=== PATIENT | female | born 1955 | race Caucasian/White ===

== ENCOUNTER 2017-07-11 01:50 | Emergency (ER) | payer OTHER ==
[~2017-07-11] VITALS: Ht 160 cm; Wt 102.1 kg
[~2017-07-11 01:50] MED LIST: BISOPROLOL FUMAR5 M1; FLEXERIL PO; GLUCOPHAGE500 MG PO; GLUCOTROL10 MG PO; HYDROCODON-ACE1 EAC7 PO; LANTUS SQ; LISINOPRIL PO; LOVASTAT40 PO; METAMUCIL0.52 GM; ZOFRAN4 MG PO; ZOLOFT 50 MG TA50 M1 PO
[2017-07-11] MEDS ORDERED: FLEXERIL PO (04:11)
[2017-07-11] MEDS ORDERED: NORCO 5-325 TA1 EACH PO (04:11)
[2017-07-11 04:58] VITALS: BP 170/91
[2017-07-11 05:08] LABS: ABSOLUTE BASOPHILS 0.1 thou/uL (0.0-0.2); ABSOLUTE EOSINOPHILS 0.2 thou/uL (0.0-0.7); ABSOLUTE LYMPHOCYTES 1.7 thou/uL (0.8-5.3); ABSOLUTE MONOCYTES 0.6 thou/uL (0.0-1.2); ABSOLUTE NEUTROPHILS 9.6 thou/uL (1.6-8.1); BASOPHILS 0.6 %; EOSINOPHILS 1.3 %; HEMATOCRIT 33.5 % (37.0-47.0); HEMOGLOBIN 11.7 gm/dL (12.0-15.0); LYMPHOCYTES 14.3 %; MCH 31.6 pg (26.0-34.0); MCHC 34.8 g/dL (28.0-37.0); MCV 90.7 fL (80.0-100.0); MONOCYTES 4.6 %; NUCLEATED RBCS 0 /100WBC; PLATELET COUNT* 277 thou/uL (150-400); POLYS 79.2 %; RDW-CV 12.9 % (10.5-14.5); WBC 12.1 thou/uL (4.0-11.0)
[2017-07-11 05:15] LABS: CALCIUM 9.1 mg/dL (8.5-10.1); CREATININE 1.1 mg/dL (0.6-1.3); POTASSIUM 4.3 mmol/L (3.5-5.1)
[2017-07-11 05:16] LABS: APTT 26.9 Seconds (25.0-31.3); PROTIME 9.4 Seconds (9.20-11.50)
[2017-07-11 05:20] LABS: ALBUMIN 3.2 g/dL (3.4-5.0); TOTAL BILIRUBIN 0.2 mg/dL (<0.1-1.0); TOTAL PROTEIN 6.8 g/dL (6.4-8.2)
== END 2017-07-11 05:14 | disposition short-term general hospital (02) ==
LOC: M.ERS 01:50
PROVIDERS: Family Medicine
DX: S02.2XXA Fracture of nasal bones, initial encounter for closed fracture (principal); S22.089A Unspecified fracture of T11-T12 vertebra, initial encounter for closed fracture; E11.9 Type 2 diabetes mellitus without complications; I10 Essential (primary) hypertension; W18.09XA Striking against other object with subsequent fall, initial encounter; Y93.89 Activity, other specified; Y92.89 Other specified places as the place of occurrence of the external cause; Y99.8 Other external cause status

== ENCOUNTER → 2017-10-25 | Outpatient (CLI) | payer OTHER ==
[~2017-10-25] MED LIST changes: +NORCO 5-325 TA1 EACH PO
[2017-10-25 11:20] LABS: CALCIUM 9.2 mg/dL (8.5-10.1); CREATININE 1.1 mg/dL (0.6-1.3); POTASSIUM 4.3 mmol/L (3.5-5.1)
[2017-10-26 02:07] LABS: GLYCOHEMOGLOBIN (HGB A1C) 6.1 % (4.8-5.6)
== END ==
LOC: M.RAD 10:38
PROVIDERS: Family Medicine
DX: M48.54XA Collapsed vertebra, not elsewhere classified, thoracic region, initial encounter for fracture (principal); E11.9 Type 2 diabetes mellitus without complications

== ENCOUNTER → 2018-04-27 | Outpatient (CLI) | payer OTHER ==
[2018-04-27 11:35] LABS: ALBUMIN 3.6 g/dL (3.4-5.0); CALCIUM 9.2 mg/dL (8.5-10.1); CREATININE 1.1 mg/dL (0.6-1.3); POTASSIUM 4.4 mmol/L (3.5-5.1); TOTAL BILIRUBIN 0.3 mg/dL (<0.1-1.0); TOTAL PROTEIN 7.2 g/dL (6.4-8.2)
== END ==
LOC: M.LAB 10:44
PROVIDERS: Family Medicine
DX: E11.9 Type 2 diabetes mellitus without complications (principal); I10 Essential (primary) hypertension; Z79.4 Long term (current) use of insulin

== ENCOUNTER → 2018-08-23 | Outpatient (CLI) | payer OTHER ==
[2018-08-23 10:13] LABS: ABSOLUTE BASOPHILS 0.1 thou/uL (0.0-0.2); ABSOLUTE EOSINOPHILS 0.2 thou/uL (0.0-0.7); ABSOLUTE LYMPHOCYTES 1.7 thou/uL (0.8-5.3); ABSOLUTE MONOCYTES 0.5 thou/uL (0.0-1.2); BASOPHILS 1.2 %; EOSINOPHILS 2.3 %; HEMATOCRIT 35.6 % (37.0-47.0); HEMOGLOBIN 11.6 gm/dL (12.0-15.0); LYMPHOCYTES 18.3 %; MCH 30.2 pg (26.0-34.0); MCHC 32.6 g/dL (28.0-37.0); MCV 92.6 fL (80.0-100.0); MONOCYTES 5.1 %; MPV 7.9 fl. (7.2-11.1); NUCLEATED RBCS 0 /100WBC; PLATELET COUNT* 315 thou/uL (150-400); POLYS 73.1 %; RBC 3.84 mil/uL (4.20-5.00); RDW-CV 13.3 % (10.5-14.5); WBC 9.5 thou/uL (4.0-11.0)
[2018-08-23 10:38] LABS: ALBUMIN 3.4 g/dL (3.4-5.0); ALKALINE PHOSPHATASE 64 U/L (46-116); ANION GAP 8 mmol/L (7-16); BUN 29 mg/dL (7-18); CALCIUM 9.1 mg/dL (8.5-10.1); CHLORIDE 104 mmol/L (98-107); CO2 25 mmol/L (21-32); CREATININE 1.3 mg/dL (0.6-1.3); GLUCOSE 129 mg/dL (70-99); POTASSIUM 4.7 mmol/L (3.5-5.1); SGOT 15 U/L (15-37); SGPT 24 U/L (30-65); SODIUM 137 mmol/L (136-145); TOTAL BILIRUBIN 0.3 mg/dL (<0.1-1.0); TOTAL PROTEIN 6.9 g/dL (6.4-8.2)
[2018-08-23 10:55] LABS: CHOLESTEROL 160 mg/dL (<200); HDL CHOLESTEROL 87 mg/dL (>40); LDL CHOLESTEROL 59 mg/dL (<100); TC:HDL 1.8 Ratio (Not establshd); TRIGLYCERIDE 72 mg/dL (<150); VLDL 14 mg/dL (<40)
[2018-08-23 10:57] LABS: SERUM ASSESSMENT Clear
[2018-08-23 17:10] LABS: LDL (DIRECT) CHOL 67 mg/dL (0-99)
[2018-08-23 18:06] LABS: T7 1.3 (1.2-4.9)
[2018-08-23 23:07] LABS: GLYCOHEMOGLOBIN (HGB A1C) 6.5 % (4.8-5.6)
== END ==
LOC: M.LAB 09:47
PROVIDERS: Family Medicine
DX: Z12.31 Encounter for screening mammogram for malignant neoplasm of breast (principal); E11.9 Type 2 diabetes mellitus without complications; E78.5 Hyperlipidemia, unspecified; I10 Essential (primary) hypertension

== ENCOUNTER → 2018-09-25 | Outpatient (CLI) | payer OTHER | LOC: M.MRI 09-14 11:48 | DX: M75.42 Impingement syndrome of left shoulder (principal); M75.41 Impingement syndrome of right shoulder; M75.102 Unspecified rotator cuff tear or rupture of left shoulder, not specified as traumatic; M75.101 Unspecified rotator cuff tear or rupture of right shoulder, not specified as traumatic; M25.512 Pain in left shoulder; M25.511 Pain in right shoulder; M19.011 Primary osteoarthritis, right shoulder; M19.012 Primary osteoarthritis, left shoulder ==

== ENCOUNTER → 2018-11-07 | Outpatient (CLI) | payer OTHER ==
[~2018-11-07] MED LIST changes: +CATAPRESS3 TOP; +DULOXETINE HCL60 MG PO; +ESZOPICLONE3 MG PO; -LISINOPRIL PO; +LISINOPRIL40 MG PO; +MOBIC15 MG PO; +TOUJEO SOL300 UNIT/1 SUBQ; +TRULICITY0.75 MG/0. SUBQ
== END ==
LOC: M.ULTRA 09:00
DX: I15.0 Renovascular hypertension (principal)

== ENCOUNTER → 2018-11-09 | Outpatient (CLI) | payer OTHER ==
[~2018-11-09] VITALS: Ht 160 cm; Wt 101.6 kg
[2018-11-09 09:02] LABS: HEMATOCRIT 35.4 % (37.0-47.0); MCH 31.4 pg (26.0-34.0); MCHC 33.8 g/dL (28.0-37.0); MPV 8.2 fl. (7.2-11.1); RBC 3.81 mil/uL (4.20-5.00); WBC 10.7 thou/uL (4.0-11.0)
[2018-11-09 09:06] LABS: URINE BILIRUBIN NEGATIVE (Negative); URINE BLOOD NEGATIVE (Negative); URINE CLARITY CLEAR; URINE COLOR YELLOW; URINE GLUCOSE-RANDOM NEGATIVE (Negative); URINE KETONES NEGATIVE (Negative); URINE LEUKOCYTES-REFLEX NEGATIVE (Negative); URINE NITRITE-REFLEX NEGATIVE (Negative); URINE PROTEIN NEGATIVE (Negative); URINE SPECIFIC GRAVITY 1.015 (1.005-1.030); URINE UROBILINOGEN 0.2 E.U./dl (0.2-1.0)
[2018-11-09 09:10] LABS: INR 0.9; PROTIME 9.5 Seconds (9.20-11.50)
[2018-11-09 09:14] LABS: ALBUMIN 3.6 g/dL (3.4-5.0); CALCIUM 9.5 mg/dL (8.5-10.1); CREATININE 1.2 mg/dL (0.6-1.3); POTASSIUM 4.5 mmol/L (3.5-5.1); TOTAL BILIRUBIN 0.3 mg/dL (<0.1-1.0); TOTAL PROTEIN 7.2 g/dL (6.4-8.2)
--- NOTE | 2018-11-09 17:40 | EKG ---
[place] [address] ELECTROCARDIOGRAM REPORT Name: FUNMILAYO LARSON Room: PRE IN [facility].#: [id number] Admission: Attend Phys: Trisha García Discharge: Date of : 57 Report #: [id number] THIS REPORT FOR: //name// 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
== END ==
LOC: M.PRE → M.LAB 08:00 → M.PRE 11-21 06:44 → EDSTATUS 11-21 15:14
PROVIDERS: Orthopaedic Surgery
DX: Z01.818 Encounter for other preprocedural examination (principal); M19.011 Primary osteoarthritis, right shoulder; I51.7 Cardiomegaly

== ENCOUNTER → 2018-11-15 | Outpatient (CLI) | payer OTHER | LOC: M.CT 07:22 | DX: I70.1 Atherosclerosis of renal artery (principal); I72.8 Aneurysm of other specified arteries ==

== ENCOUNTER → 2019-01-12 | Outpatient (CLI) | payer OTHER ==
[2019-01-12 17:06] LABS: ABSOLUTE BASOPHILS 0.1 thou/uL (0.0-0.2); ABSOLUTE EOSINOPHILS 0.2 thou/uL (0.0-0.7); ABSOLUTE LYMPHOCYTES 2.5 thou/uL (0.8-5.3); ABSOLUTE MONOCYTES 0.6 thou/uL (0.0-1.2); ABSOLUTE NEUTROPHILS 8.1 thou/uL (1.6-8.1); BASOPHILS 0.5 %; EOSINOPHILS 1.6 %; HEMATOCRIT 36.7 % (37.0-47.0); HEMOGLOBIN 12.1 gm/dL (12.0-15.0); LYMPHOCYTES 21.6 %; MCH 30.7 pg (26.0-34.0); MCHC 32.9 g/dL (28.0-37.0); MCV 93.3 fL (80.0-100.0); MONOCYTES 5.1 %; MPV 8.3 fl. (7.2-11.1); NUCLEATED RBCS 0 /100WBC; PLATELET COUNT* 398 thou/uL (150-400); POLYS 71.2 %; RBC 3.93 mil/uL (4.20-5.00); RDW-CV 12.9 % (10.5-14.5); WBC 11.4 thou/uL (4.0-11.0)
[2019-01-12 17:18] LABS: APTT 24.7 Seconds (25.0-31.3); PROTIME 9.8 Seconds (9.20-11.50)
[2019-01-12 17:21] LABS: ALBUMIN 3.6 g/dL (3.4-5.0); CALCIUM 9.8 mg/dL (8.5-10.1); CREATININE 1.2 mg/dL (0.6-1.3); POTASSIUM 4.8 mmol/L (3.5-5.1); TOTAL BILIRUBIN 0.3 mg/dL (<0.1-1.0); TOTAL PROTEIN 7.5 g/dL (6.4-8.2)
== END ==
LOC: M.LAB 16:34
PROVIDERS: Internal Medicine Hematology & Oncology
DX: R23.8 Other skin changes (principal)

== ENCOUNTER 2019-02-13 08:46 | Inpatient (IN) | payer OTHER ==
[2019-02-01 09:23] LABS: HEMATOCRIT 34.4 % (37.0-47.0); HEMOGLOBIN 11.4 gm/dL (12.0-15.0); MCH 31.5 pg (26.0-34.0); MCHC 33.2 g/dL (28.0-37.0); MPV 7.8 fl. (7.2-11.1); RBC 3.62 mil/uL (4.20-5.00); RDW-CV 12.7 % (10.5-14.5); WBC 9.2 thou/uL (4.0-11.0)
[2019-02-01 09:32] LABS: INR 0.9; PROTIME 9.6 Seconds (9.20-11.50)
[2019-02-01 09:37] LABS: ALBUMIN 3.4 g/dL (3.4-5.0); CALCIUM 9.2 mg/dL (8.5-10.1); CREATININE 1.1 mg/dL (0.6-1.3); POTASSIUM 4.4 mmol/L (3.5-5.1); TOTAL BILIRUBIN 0.3 mg/dL (<0.1-1.0); TOTAL PROTEIN 7.1 g/dL (6.4-8.2)
[2019-02-01 10:00] LABS: URINE BILIRUBIN NEGATIVE (Negative); URINE BLOOD NEGATIVE (Negative); URINE CLARITY CLEAR; URINE COLOR YELLOW; URINE GLUCOSE-RANDOM NEGATIVE (Negative); URINE KETONES NEGATIVE (Negative); URINE LEUKOCYTES-REFLEX NEGATIVE (Negative); URINE NITRITE-REFLEX NEGATIVE (Negative); URINE PROTEIN NEGATIVE (Negative); URINE SPECIFIC GRAVITY 1.015 (1.005-1.030); URINE UROBILINOGEN 0.2 E.U./dl (0.2-1.0)
--- NOTE | 2019-02-01 10:56 | EKG ---
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
[~2019-02-13] VITALS: Ht 160 cm; Wt 102.1 kg
[~2019-02-13 08:46] MED LIST changes: +AMLODIPINE BESY10 MG PO; -BISOPROLOL FUMAR5 M1; +BISOPROLOL FUMAR5 M1 PO; +COMPLEX B-1001 EACH PO; +TRAMADOL 50 MG50 MG PO
[2019-02-13 12:57] VITALS: BP 144/82
[2019-02-13 16:25] VITALS: BP 104/63
[2019-02-13 16:31] VITALS: BP 104/63
--- NOTE | 2019-02-13 16:36 | NUR ---
PT ADMITTED TO UNIT WITH RT REVERSE TOAL SHOULDER REPLACEMENT. PT ALERT AND ORIENTED AND DROWSY. PT IS ON 3 LITERS 02 WITH CAPNO. 92% SATS. PULSES 2+ IN ALL EXTREMITIES. LUNGS CLEAR. HEART RATE REGULAR. HX HTN. PT ACCUE CHECK WITH HX DM TYPE 2. PT GIVEN HUMALOG 6 UNITS PRIOR TO TRANSFER TO UNIT. PT NOT EATING AT THIS TIME, HOLDING METFORMIN UNTIL MORE ALERT. PT HAS ICE PACK TO RT SHOULDER. IMMOBILIZER TO RT SHOULDER. PT DENIES ANY PAIN AT THIS TIME. IV LT WRIST WITH 1/2 NS AT 75. FAMILY AT BEDSIDE. FALL RISK PRECAUTIONS IN PLACE. HOURLY ROUNDING COMPLETED. WILL CONTINUE TO MONITOR.
--- NOTE | 2019-02-13 17:20 | NUR ---
PT REMAINED ALERT AND ORIENTED. PT RESTING IN ROOM. PT DROWSY AT THIS TIME. PT DENIES ANY PAIN AT THIS MOMENT. FALL RISK PRECAUTIONS IN PLACE. HOURLY ROUNDING COMPLETED. WILL CONTINUE TO MONITOR.
[2019-02-13 19:45] VITALS: BP 111/58
[2019-02-14] VITALS (7 sets, daily range): BP systolic 115–143; BP diastolic 61–73
--- NOTE | 2019-02-14 04:59 | NUR ---
PATIENT ORIENTED X 4 AT FIRST ROUNDS BUT STILL DROWSY FROM SURGERY. STEADILY MORE ALERT THROUGHOUT THE SHIFT. RESTING QUIETLY ON HOURLY ROUNDS. STATES DOES NOT SLEEP WELL BUT DID NOT WANT TO TAKE OFFERED AMBIEN. DRESSING AND POLAR CARE CLEAN AND DRY RIGHT SHOULDER. RIGHT UE REMAINS IN IMMOBILIZER. 2+ RADIAL PULSES. ABLE TO SQUEEZE POSITIONING BALL. BLOCK IN EFFECT MOST OF SHIFT AND HAD NO PAIN UNTIL 0330. PROVIDED FLEXERIL AND HYDROCODONE AT THAT TIME TO GOOD EFFECT. TRANSFERING WITH MIN ASSIST SUPINE TO SIT, CGA SIT TO STAND AND CGA AMBULATION TO THE BATHROOM. ADEQUATE VOIDS. VITAL SIGNS STABLE WITH O2 ON AT 2L/MIN AND CONTINUOUS CAPNOGRAPHY. NO NAUSEA. IVF'S AND ANTIBIOTICS PER ORDER. BED ALARM ON FOR SAFETY. CONTINUE TO MONITOR.
[2019-02-14] MEDS ORDERED: PERCOCET PO (10:48)
[2019-02-14] MEDS ORDERED: XARELTO10 MG PO (10:49)
--- NOTE | 2019-02-14 11:30 | NUR ---
NO PRESCRIPTION ON CHART FOR XARELTO. PT.THINKS SHE IS TO DO OUTPT.THERAPY. CALL PLACED TO OFFICE AND SPOKE WITH HIS NURSE,GIRISH. SHE SAID HE IS DELAY IN SURGERY. SHOULD BE HER ABOUT 12. SHE WILL CALL CM BACK. PT.LIVES WITH . DAUGHTER,WHO IS AN RN ALSO LIVES WITH THEM. THEY CAN BOTH HELP PT. NEEDED. SHE DOES NOT USE ANY DME. IS NORMALLY INDEPENDENT. 1330-CM CALLED 'S OFFICE BACK. IS STILL IN SURGERY. 1530-CALLED OFFICE. GIRISH CLARIFIED QUESIONS FOR CM. ORDERS RECEIVED AND WRITTEN. PT.CHOSE [facility] FOR THEY CONTRACT WITH HER INSURANCE. FAXED REFERRAL ND DISCHARGE ORDERS TO [facility].
[2019-02-14] MEDS ORDERED: ASPIRIN325 PO (14:59)
--- NOTE | 2019-02-14 16:08 | NUR ---
PT GIVEN DISCHARGE INFORMATION, CARE NOTES, AND PRESCRIPTIONS. IV REMOVED. PT LEFT VIA WHEELCHAIR WITH NURSING STAFF TO HOME WITH FAMILY. HOME HEALTH ORDERED. FALL RISK PRECAUTIONS IN PLACE. HOURLY ROUNDING COMPLETED.
--- NOTE | 2019-02-20 08:39 | OP ---
[facility] [address] [place] [address] OPERATIVE REPORT Name: MARSHAFUNMILAYOIDRIS DUTTA Room: [address] IN M.R.#: [id number] Admission: 02/13/19 Attend Phys: Trisha García Discharge: 02/14/19 Date of : 57 Report #: [id number] THIS REPORT FOR: //name// CC: Cintia Garcia DATE OF SERVICE: 02/13/2019 PREOPERATIVE DIAGNOSIS: Right shoulder osteoarthritis. POSTOPERATIVE DIAGNOSES: 1. Right shoulder osteoarthritis. 2. Biceps tendon tear. PROCEDURES: 1. Right shoulder reverse total shoulder arthroplasty. 2. Biceps tenodesis. SURGEON: Сергей Dee II, DO. MANAGER FRONT OFFICE: PEYTON Wyatt. ANESTHESIA: General endotracheal. ESTIMATED BLOOD LOSS: 50 mL. ANTIBIOTICS: Ancef preoperatively. DRAINS: None. COMPLICATIONS: None. CONDITION: Stable to recovery room. IMPLANTS: Listed in the operative record and progress note. BRIEF HISTORY: The patient was seen in the preoperative area. Preoperative H and P was performed. Site was marked. Questions were answered. Risks and benefits were discussed with the patient in detail about surgery. The patient wished to proceed, assuming all risks. DESCRIPTION OF PROCEDURE: The patient was taken to the operative suite and placed supine upon the operative table and placed in modified beach chair position. All bony prominences were well padded. The right shoulder was sterilely prepped and draped. Surgery began by deltopectoral incision, this was [facility] [address] [place] [address] OPERATIVE REPORT Name: FUNMILAYO LARSON Room: [address] M.R.#: [id number] Admission: 02/13/19 Attend Phys: Trisha García Discharge: 02/14/19 Date of : 57 Report #: [id number] carried down to the subcutaneous tissues. The deltoid was retracted laterally and the subscap muscle was reflected off the anterior aspect of the humerus. The rotator cuff did have severe tearing and portions of these were resected. The humerus was then dislocated and a starter guide was then placed into the proximal aspect of the humerus down into the canal, this was broached in sequential fashion up to appropriate size, which was size 10, this was left in place. The alignment guide was then aligned for the head cut and the head was cut in appropriate fashion. After this was removed, it was broached in sequential fashion up to appropriate size 10, this was then left in place and the metal hubcap was then placed on top of the humerus to protect it. This was then retracted to expose the glenoid. Excess labrum was removed around the glenoid as well as excess osteophytes from the inferior surface and superior surface. The guide pin was then placed through the lower center of the glenoid to appropriate depth. It was then reamed in appropriate fashion down to punctate bleeding, this was then removed and the glenoid baseplate was then applied and secured to the inferior superior as well as posterior screw in appropriate fashion. The central screw was then sectioned to further position. The glenosphere was then selected with the eccentric version size 36 and this was then malleted in position and secured to the glenoid baseplate. Attention was then turned back to the humerus, it was trialed utilizing multiple selections and finally settled on an implant that was significantly stable with full range of motion of the shoulder, finals were then assembled on the back table in a monoblock and malleted down into position and once again reduced in appropriate fashion into the shoulder. Shoulder once again showed full range of motion without evidence of dislocation and excellent stability of all prosthesis. Final irrigation was then performed. The deltoid was gently reapproximated to the underlying tissues utilizing a 1 Vicryl in running fashion. Skin was closed with 2-0 Vicryl and running Monocryl stitch. Dermabond and sterile dressing as well as an UltraSling were applied. The patient transported to recovery room in stable condition. At this time, the biceps tendon was attached to the pectoralis with the biceps tenodesis being performed due to significant tearing. The remaining portion of the intra-articular area was clipped and removed and I then put the closure part, the deltoid was reapproximated, skin was closed with 2-0 Vicryl and running Monocryl and Dermabond and sterile dressing. <ELECTRONICALLY SIGNED> By: Сергей Dee II, DO 02/20/19 0839 0831 0917Сергей Dee II, DO /nt
== END 2019-02-14 16:31 | disposition home health service (06) | DRG 483 ==
LOC: M.TBA 08:46 → M.PRE 08:58 → M.ORTHSURG 15:03
PROVIDERS: Orthopaedic Surgery; ADMIT Internal Medicine
PROC: 0RRJ00Z Replacement of Right Shoulder Joint with Reverse Ball and Socket Synthetic Substitute, Open Approach (ICD-10-PCS; principal; 2019-02-13)
DX: M19.011 Primary osteoarthritis, right shoulder (principal); J98.11 Atelectasis; S46.211A Strain of muscle, fascia and tendon of other parts of biceps, right arm, initial encounter; E11.9 Type 2 diabetes mellitus without complications; I10 Essential (primary) hypertension; E78.5 Hyperlipidemia, unspecified; E66.9 Obesity, unspecified; Z68.39 Body mass index [BMI] 39.0-39.9, adult; Z90.49 Acquired absence of other specified parts of digestive tract; Z79.899 Other long term (current) drug therapy; X58.XXXA Exposure to other specified factors, initial encounter; Y93.89 Activity, other specified; Y92.89 Other specified places as the place of occurrence of the external cause; Y99.8 Other external cause status

== ENCOUNTER → 2019-02-28 | Outpatient (CLI) | payer OTHER ==
[~2019-02-28] MED LIST changes: +ASPIRIN325 PO; +PERCOCET PO; +XARELTO10 MG PO
[2019-03-01 03:08] LABS: GLYCOHEMOGLOBIN (HGB A1C) 7.9 % (4.8-5.6)
== END ==
LOC: M.LAB 10:09
PROVIDERS: Family Medicine
DX: E11.9 Type 2 diabetes mellitus without complications (principal)

== ENCOUNTER 2019-04-28 00:02 | Emergency (ER) | payer OTHER ==
[~2019-04-28] VITALS: Ht 160 cm; Wt 99.8 kg
[2019-04-28] MEDS ORDERED: AMITRIPTYLINE H25 M3 PO (00:48)
[2019-04-28 00:52] LABS: ABSOLUTE BASOPHILS 0.1 thou/uL (0.0-0.2); ABSOLUTE EOSINOPHILS 0.6 thou/uL (0.0-0.7); ABSOLUTE LYMPHOCYTES 4.9 thou/uL (0.8-5.3); BASOPHILS 0.5 %; EOSINOPHILS 4.3 %; HEMOGLOBIN 12.1 gm/dL (12.0-15.0); LYMPHOCYTES 33.5 %; MCH 30.9 pg (26.0-34.0); MCHC 33.5 g/dL (28.0-37.0); MCV 92.2 fL (80.0-100.0); MONOCYTES 6.9 %; MPV 8.2 fl. (7.2-11.1); NUCLEATED RBCS 0 /100WBC; PLATELET COUNT* 423 thou/uL (150-400); POLYS 54.8 %; RBC 3.91 mil/uL (4.20-5.00); RDW-CV 13.4 % (10.5-14.5); WBC 14.7 thou/uL (4.0-11.0)
[2019-04-28 00:53] LABS: CALCIUM 9.8 mg/dL (8.5-10.1); CREATININE 1.3 mg/dL (0.6-1.3); POTASSIUM 3.3 mmol/L (3.5-5.1)
[2019-04-28 00:58] LABS: TOTAL BILIRUBIN 0.2 mg/dL (<0.1-1.0); TOTAL PROTEIN 8.1 g/dL (6.4-8.2)
[2019-04-28 02:57] LABS: URINE BILIRUBIN NEGATIVE (Negative); URINE BLOOD NEGATIVE (Negative); URINE CLARITY CLEAR; URINE COLOR STRAW; URINE GLUCOSE-RANDOM TRACE (Negative); URINE KETONES NEGATIVE (Negative); URINE LEUKOCYTES-REFLEX NEGATIVE (Negative); URINE NITRITE-REFLEX NEGATIVE (Negative); URINE PROTEIN NEGATIVE (Negative); URINE SPECIFIC GRAVITY 1.015 (1.005-1.030); URINE UROBILINOGEN 0.2 E.U./dl (0.2-1.0)
[2019-04-28 03:41] VITALS: BP 118/65
--- NOTE | 2019-04-30 14:59 | EKG ---
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 04/30/19 1459 Clem Brunson MD, FACC /EPI
== END 2019-04-28 03:43 | disposition home or self-care (01) ==
LOC: M.ERS 00:02
PROVIDERS: Personal Emergency Response Attendant
DX: E11.649 Type 2 diabetes mellitus with hypoglycemia without coma (principal); I10 Essential (primary) hypertension; Z98.51 Tubal ligation status; Z90.49 Acquired absence of other specified parts of digestive tract; Z98.890 Other specified postprocedural states; Z79.4 Long term (current) use of insulin

== ENCOUNTER → 2019-05-03 | Outpatient (CLI) | payer OTHER ==
[~2019-05-03] MED LIST changes: +AMITRIPTYLINE H25 M3 PO
[2019-05-03 12:10] LABS: ALBUMIN 3.7 g/dL (3.4-5.0); CALCIUM 9.4 mg/dL (8.5-10.1); CREATININE 1.4 mg/dL (0.6-1.3); POTASSIUM 4.3 mmol/L (3.5-5.1); TOTAL BILIRUBIN 0.3 mg/dL (<0.1-1.0)
[2019-05-04 02:07] LABS: GLYCOHEMOGLOBIN (HGB A1C) 6.8 % (4.8-5.6)
== END ==
LOC: M.LAB 11:29
PROVIDERS: Orthopaedic Surgery
DX: M25.511 Pain in right shoulder (principal); E11.9 Type 2 diabetes mellitus without complications; Z96.619 Presence of unspecified artificial shoulder joint

== ENCOUNTER → 2019-05-10 | Outpatient (CLI) | payer OTHER | LOC: M.RAD 10:30 | DX: M19.012 Primary osteoarthritis, left shoulder (principal); M25.712 Osteophyte, left shoulder; M25.761 Osteophyte, right knee; M17.11 Unilateral primary osteoarthritis, right knee; I70.0 Atherosclerosis of aorta ==

== ENCOUNTER → 2019-08-29 | Outpatient (CLI) | payer OTHER ==
[2019-08-29 13:45] LABS: ALBUMIN 3.4 g/dL (3.4-5.0); CALCIUM 8.9 mg/dL (8.5-10.1); CREATININE 1.4 mg/dL (0.6-1.3); POTASSIUM 4.8 mmol/L (3.5-5.1); TOTAL BILIRUBIN 0.3 mg/dL (<0.1-1.0); TOTAL PROTEIN 7.1 g/dL (6.4-8.2)
[2019-08-30 02:07] LABS: GLYCOHEMOGLOBIN (HGB A1C) 6.6 % (4.8-5.6)
== END ==
LOC: M.LAB 13:05
PROVIDERS: Family Medicine
DX: E11.9 Type 2 diabetes mellitus without complications (principal)

== ENCOUNTER → 2019-12-17 | Outpatient (CLI) | payer OTHER ==
[2019-12-17 09:38] LABS: ABSOLUTE BASOPHILS 0.1 thou/uL (0.0-0.2); ABSOLUTE EOSINOPHILS 0.3 thou/uL (0.0-0.7); ABSOLUTE LYMPHOCYTES 1.9 thou/uL (0.8-5.3); ABSOLUTE MONOCYTES 0.6 thou/uL (0.0-1.2); ABSOLUTE NEUTROPHILS 5.8 thou/uL (1.6-8.1); BASOPHILS 0.7 %; EOSINOPHILS 3.7 %; HEMATOCRIT 33.8 % (37.0-47.0); HEMOGLOBIN 11.4 gm/dL (12.0-15.0); LYMPHOCYTES 22.3 %; MCH 31.2 pg (26.0-34.0); MCHC 33.7 g/dL (28.0-37.0); MCV 92.6 fL (80.0-100.0); MONOCYTES 6.4 %; MPV 7.8 fl. (7.2-11.1); NUCLEATED RBCS 0 /100WBC; PLATELET COUNT* 316 thou/uL (150-400); POLYS 66.9 %; RBC 3.65 mil/uL (4.20-5.00); RDW-CV 13.1 % (10.5-14.5); WBC 8.7 thou/uL (4.0-11.0)
[2019-12-17 09:46] LABS: ALBUMIN 3.4 g/dL (3.4-5.0); ALKALINE PHOSPHATASE 66 U/L (46-116); ANION GAP 7 mmol/L (7-16); BUN 25 mg/dL (7-18); CALCIUM 9.2 mg/dL (8.5-10.1); CHLORIDE 104 mmol/L (98-107); CHOLESTEROL 166 mg/dL (<200); CO2 27 mmol/L (21-32); CREATININE 1.3 mg/dL (0.6-1.3); GLUCOSE 97 mg/dL (70-99); HDL CHOLESTEROL 66 mg/dL (>40); LDL CHOLESTEROL 68 mg/dL (<100); POTASSIUM 4.5 mmol/L (3.5-5.1); SERUM ASSESSMENT Clear; SGOT 16 U/L (15-37); SGPT 21 U/L (30-65); SODIUM 138 mmol/L (136-145); TC:HDL 2.5 Ratio (Not establshd); TOTAL BILIRUBIN 0.3 mg/dL (<0.1-1.0); TOTAL PROTEIN 7.2 g/dL (6.4-8.2); TRIGLYCERIDE 160 mg/dL (<150); VLDL 32 mg/dL (<40)
[2019-12-17 19:07] LABS: T3 UPTAKE 23 % (24-39)
== END ==
LOC: M.LAB 09:07
PROVIDERS: ATTEND Family Medicine
DX: E11.9 Type 2 diabetes mellitus without complications (principal); E78.5 Hyperlipidemia, unspecified

== ENCOUNTER 2020-03-12 12:52 | Emergency (ER) | payer OTHER ==
[~2020-03-12] VITALS: Ht 160 cm; Wt 102.1 kg
[~2020-03-12 12:52] MED LIST changes: -CATAPRESS3 TOP; +CLONIDINE HCL0.1 M1 PO
[2020-03-12] MEDS ORDERED: MOBIC7.5 MG PO (13:05)
[2020-03-12] MEDS ORDERED: NORCO 10-325 T1 EACH PO (13:06)
[2020-03-12] MEDS ORDERED: TIZANIDINE HCL4 M1 PO (13:06)
[2020-03-12] MEDS ORDERED: PERCOCET PO (14:47)
[2020-03-12 14:55] VITALS: BP 150/75
== END 2020-03-12 14:56 | disposition home or self-care (01) ==
LOC: M.ERS 12:52
DX: M54.6 Pain in thoracic spine (principal); I10 Essential (primary) hypertension; E11.9 Type 2 diabetes mellitus without complications; Z98.51 Tubal ligation status; Z98.890 Other specified postprocedural states; Z90.49 Acquired absence of other specified parts of digestive tract; Z79.4 Long term (current) use of insulin

== ENCOUNTER → 2020-03-31 | Outpatient (CLI) | payer OTHER ==
[~2020-03-31] MED LIST changes: +BISOPROLOL-HCT1 EAC2 PO; +LORCET 5-325 M1 EACH PO; +MOBIC7.5 MG PO; +NORCO 10-325 T1 EACH PO; +TIZANIDINE HCL4 M1 PO; +VITAMIN D325 MC3 PO
== END ==
LOC: M.PC 03-26 10:27
PROVIDERS: ATTEND Physical Medicine & Rehabilitation
DX: M51.34 Other intervertebral disc degeneration, thoracic region (principal); M47.814 Spondylosis without myelopathy or radiculopathy, thoracic region; I10 Essential (primary) hypertension; E11.9 Type 2 diabetes mellitus without complications

== ENCOUNTER → 2020-04-07 | Outpatient (CLI) | payer OTHER | END | disposition home or self-care (01) | LOC: M.PC 11:10 | PROVIDERS: ATTEND Physical Medicine & Rehabilitation | DX: M47.814 Spondylosis without myelopathy or radiculopathy, thoracic region (principal); Z79.899 Other long term (current) drug therapy ==

== ENCOUNTER → 2020-04-18 | Outpatient (CLI) | payer OTHER | LOC: M.MRI 09:35 | PROVIDERS: ATTEND Physical Medicine & Rehabilitation | DX: M51.24 Other intervertebral disc displacement, thoracic region (principal); M50.30 Other cervical disc degeneration, unspecified cervical region ==

== ENCOUNTER → 2020-04-23 | Outpatient (CLI) | payer OTHER | LOC: M.PC 08:19 | PROVIDERS: ATTEND Physical Medicine & Rehabilitation | DX: M47.814 Spondylosis without myelopathy or radiculopathy, thoracic region (principal); M51.34 Other intervertebral disc degeneration, thoracic region ==

== ENCOUNTER → 2020-04-30 | Outpatient (CLI) | payer OTHER | LOC: M.PC 08:30 | PROVIDERS: ATTEND Physical Medicine & Rehabilitation | DX: M51.34 Other intervertebral disc degeneration, thoracic region (principal); M47.814 Spondylosis without myelopathy or radiculopathy, thoracic region; E11.9 Type 2 diabetes mellitus without complications; I10 Essential (primary) hypertension; E78.5 Hyperlipidemia, unspecified ==

== ENCOUNTER 2020-05-19 17:51 | Emergency (ER) | payer OTHER ==
[~2020-05-19] VITALS: Ht 160 cm; Wt 102.1 kg
[2020-05-19] MEDS ORDERED: ZOFRAN ODT4 MG SUBLING (18:34)
[2020-05-19] MEDS ORDERED: ZPAK PO (18:34)
[2020-05-19] MEDS ORDERED: PREDNISONE 20 M20 M1 PO (18:34)
[2020-05-19 18:40] VITALS: BP 158/70
== END 2020-05-19 18:51 | disposition home or self-care (01) ==
LOC: M.ERS 17:51
DX: U07.1 COVID-19 (principal); E11.9 Type 2 diabetes mellitus without complications; I10 Essential (primary) hypertension; E78.5 Hyperlipidemia, unspecified; Z98.51 Tubal ligation status; Z98.890 Other specified postprocedural states; Z90.49 Acquired absence of other specified parts of digestive tract; Z79.4 Long term (current) use of insulin

== ENCOUNTER → 2020-06-23 | Outpatient (CLI) | payer OTHER ==
[~2020-06-23] MED LIST changes: +PREDNISONE 20 M20 M1 PO; +ZOFRAN ODT4 MG SUBLING; +ZPAK PO
[2020-06-24 02:06] LABS: GLYCOHEMOGLOBIN (HGB A1C) 6.8 % (4.8-5.6)
== END ==
LOC: M.LAB 13:59
PROVIDERS: ATTEND Family Medicine
DX: Z12.31 Encounter for screening mammogram for malignant neoplasm of breast (principal); E11.69 Type 2 diabetes mellitus with other specified complication; N64.89 Other specified disorders of breast

== ENCOUNTER → 2021-01-05 | Outpatient (CLI) | payer OTHER ==
[2021-01-05 14:26] LABS: ABSOLUTE BASOPHILS 0.1 thou/uL (0.0-0.2); ABSOLUTE EOSINOPHILS 0.5 thou/uL (0.0-0.7); ABSOLUTE MONOCYTES 0.5 thou/uL (0.0-1.2); ABSOLUTE NEUTROPHILS 5.4 thou/uL (1.6-8.1); BASOPHILS 0.7 %; EOSINOPHILS 5.8 %; HEMATOCRIT 33.3 % (37.0-47.0); HEMOGLOBIN 11.4 gm/dL (12.0-15.0); LYMPHOCYTES 23.4 %; MCH 31.9 pg (26.0-34.0); MCHC 34.1 g/dL (28.0-37.0); MCV 93.5 fL (80.0-100.0); MONOCYTES 5.7 %; MPV 7.7 fl. (7.2-11.1); NUCLEATED RBCS 0 /100WBC; PLATELET COUNT* 302 thou/uL (150-400); POLYS 64.4 %; RBC 3.56 mil/uL (4.20-5.00); RDW-CV 13.5 % (10.5-14.5); WBC 8.4 thou/uL (4.0-11.0)
[2021-01-05 14:43] LABS: ALBUMIN 3.6 g/dL (3.4-5.0); ALKALINE PHOSPHATASE 78 U/L (46-116); ANION GAP 8 mmol/L (7-16); BUN 25 mg/dL (7-18); CHLORIDE 102 mmol/L (98-107); CHOLESTEROL 181 mg/dL (<200); CO2 28 mmol/L (21-32); CREATININE 1.4 mg/dL (0.6-1.3); GLUCOSE 160 mg/dL (70-99); HDL CHOLESTEROL 73 mg/dL (>40); LDL CHOLESTEROL 84 mg/dL (<100); POTASSIUM 4.5 mmol/L (3.5-5.1); SGOT 18 U/L (15-37); SGPT 21 U/L (30-65); SODIUM 138 mmol/L (136-145); TC:HDL 2.5 Ratio (Not establshd); TOTAL BILIRUBIN 0.2 mg/dL (<0.1-1.0); TOTAL PROTEIN 7.1 g/dL (6.4-8.2); TRIGLYCERIDE 121 mg/dL (<150); VLDL 24 mg/dL (<40)
[2021-01-05 14:53] LABS: SERUM ASSESSMENT Clear
[2021-01-05 23:06] LABS: T7 1.2 (1.2-4.9)
[2021-01-06 02:07] LABS: GLYCOHEMOGLOBIN (HGB A1C) 6.6 % (4.8-5.6)
== END ==
LOC: M.LAB 14:09
PROVIDERS: ATTEND Family Medicine
DX: E11.9 Type 2 diabetes mellitus without complications (principal); E78.5 Hyperlipidemia, unspecified; I10 Essential (primary) hypertension

== ENCOUNTER → 2021-03-31 | Outpatient (CLI) | payer OTHER ==
[2021-03-31 12:56] LABS: ALBUMIN 3.9 g/dL (3.4-5.0); CALCIUM 9.3 mg/dL (8.5-10.1); CREATININE 1.5 mg/dL (0.6-1.3); POTASSIUM 4.9 mmol/L (3.5-5.1); TOTAL BILIRUBIN 0.3 mg/dL (<0.1-1.0); TOTAL PROTEIN 7.5 g/dL (6.4-8.2)
[2021-04-01 07:12] LABS: GLYCOHEMOGLOBIN (HGB A1C) 6.7 % (4.8-5.6)
== END ==
LOC: M.LAB 12:13
PROVIDERS: ATTEND Family Medicine
DX: E11.9 Type 2 diabetes mellitus without complications (principal); E78.5 Hyperlipidemia, unspecified

== ENCOUNTER → 2021-04-21 | Outpatient (CLI) | payer OTHER ==
[2021-04-21 11:18] LABS: URINE BILIRUBIN NEGATIVE (Negative); URINE BLOOD NEGATIVE (Negative); URINE CLARITY CLEAR; URINE COLOR YELLOW; URINE GLUCOSE-RANDOM NEGATIVE (Negative); URINE KETONES NEGATIVE (Negative); URINE LEUKOCYTES-REFLEX NEGATIVE (Negative); URINE NITRITE-REFLEX NEGATIVE (Negative); URINE PROTEIN NEGATIVE (Negative); URINE SPECIFIC GRAVITY 1.025 (1.005-1.030); URINE UROBILINOGEN 0.2 E.U./dl (0.2-1.0)
== END ==
LOC: M.LAB 10:52
PROVIDERS: ATTEND Family Medicine
DX: R30.0 Dysuria (principal)

== ENCOUNTER 2021-06-30 14:29 | Emergency (ER) | payer OTHER ==
[~2021-06-30] VITALS: Ht 160 cm; Wt 102.1 kg
[2021-06-30] MEDS ORDERED: NORCO5 PO (17:59)
[2021-06-30 18:28] VITALS: BP 136/78
== END 2021-06-30 18:15 | disposition home or self-care (01) ==
LOC: M.ERS 14:29
DX: M54.6 Pain in thoracic spine (principal); G89.29 Other chronic pain; E11.9 Type 2 diabetes mellitus without complications; I10 Essential (primary) hypertension; E78.5 Hyperlipidemia, unspecified; Z98.51 Tubal ligation status; Z98.890 Other specified postprocedural states; Z90.49 Acquired absence of other specified parts of digestive tract; Z79.899 Other long term (current) drug therapy; Z79.4 Long term (current) use of insulin

== ENCOUNTER → 2021-07-13 | Outpatient (CLI) | payer OTHER ==
[~2021-07-13] MED LIST changes: +FISH OIL 1,0001 EAC1 PO; +MELOXICAM7.5 MG PO; +NAPROSYN500 M1 PO; +NORCO5 PO; +TYLENOL PO; +ZANAFLEX4 M2 PO
== END ==
LOC: M.PC 09:37
PROVIDERS: ATTEND Physical Medicine & Rehabilitation
DX: M47.814 Spondylosis without myelopathy or radiculopathy, thoracic region (principal); M51.24 Other intervertebral disc displacement, thoracic region; M47.816 Spondylosis without myelopathy or radiculopathy, lumbar region; M25.78 Osteophyte, vertebrae

== ENCOUNTER → 2021-07-20 | Outpatient (CLI) | payer OTHER | END | disposition home or self-care (01) | LOC: M.PC 09:14 | PROVIDERS: ATTEND Physical Medicine & Rehabilitation | DX: M47.814 Spondylosis without myelopathy or radiculopathy, thoracic region (principal); M79.18 Myalgia, other site; M54.9 Dorsalgia, unspecified; I10 Essential (primary) hypertension; E11.9 Type 2 diabetes mellitus without complications; E78.5 Hyperlipidemia, unspecified; Z98.890 Other specified postprocedural states; Z79.899 Other long term (current) drug therapy; Z98.51 Tubal ligation status; Z90.49 Acquired absence of other specified parts of digestive tract ==